=== PATIENT | female | born 1980 | race Caucasian/White ===

== ENCOUNTER 2019-11-04 10:39 | Emergency (ER) | payer SELFPAY ==
[~2019-11-04] VITALS: Ht 160 cm; Wt 53.1 kg
--- NOTE | 2019-11-04 10:47 | NUR ---
Dr Mcmahon at the bedside for MSE.
--- NOTE | 2019-11-04 11:16 | NUR ---
Pt out of ER for CT.
--- NOTE | 2019-11-04 11:32 | NUR ---
Pt back from Ct. Family at the bedside.
--- NOTE | 2019-11-04 12:04 | NUR ---
[facility] at the bedside for report.
[2019-11-04 12:44] VITALS: BP 133/79
--- NOTE | 2019-11-04 12:51 | NUR ---
Patient discharged in stable conditon. Written and verbal after care instructions given. Patient verbalizes understanding of instructions. Pt left ER accompained by family.
== END 2019-11-04 12:52 | disposition home or self-care (01) ==
LOC: ER 10:42
DX: S02.2XXA Fracture of nasal bones, initial encounter for closed fracture (principal); S02.32XA Fracture of orbital floor, left side, initial encounter for closed fracture; M79.641 Pain in right hand; X58.XXXA Exposure to other specified factors, initial encounter; Y93.89 Activity, other specified; Y92.89 Other specified places as the place of occurrence of the external cause; Y99.8 Other external cause status
CPT/HCPCS: 70450; 70486; 73130; A4663